=== PATIENT | female | born 1955 | race Caucasian/White ===

== ENCOUNTER → 2022-02-21 08:30 | Outpatient (BNVA) | payer MEDICARE, MEDICAID, SELFPAY | PROVIDERS: PCP Internal Medicine Geriatric Medicine; Referring Provider Internal Medicine Geriatric Medicine; Visit Provider Internal Medicine | DX: R07.89 Other chest pain (principal); R06.02 Shortness of breath; R00.2 Palpitations | CPT/HCPCS: 93005; 99202 ==

== ENCOUNTER → 2022-03-09 07:24 | Outpatient (REF) | payer MEDICARE, MEDICAID, SELFPAY ==
--- NOTE | 2022-03-09 07:34 | CA_ITS ---
Transthoracic Echocardiogram Patient (Last, First, Middle): Kristi Galan, Gender: Female Date of : 1955 Age: 66 Procedure Date: 03/09/2022 Procedure Type: Transthoracic Echocardiogram Location: OP Height: 157.48 cm Weight: 57.61 kg BSA: 1.58 m2 Heart Rate: 72 bpm BP: 100 / 70 mmHg It Infrastructure Manager: TO Referring MD: Bart Jim MD Data Center Engineer: Bishnu Jenkins MD Symptoms: R07.89 - Other chest pain Study Quality: Fair ECG Rhythm: Sinus Conclusions: - 1. Normal LV systolic function with grade 1 diastolic dysfunction 2. Normal cardiac valvular Doppler 3. Normal RV systolic pressure 4. No gross pericardial effusion Findings Left Ventricle Normal left ventricular size, thickness, and systolic function. The visually estimated ejection fraction is between 60-65%. Spectral Doppler is indicative of an impaired relaxation filling pattern. E/E prime ratio is <8, consistent with normal filling pressures. Evidence suggests grade I (mild) diastolic dysfunction. Right Ventricle Normal right ventricular cavity size and systolic function. Atria The left atrium is normal in size. There is a mobile atrial septum noted. Interatrial shunt cannot be excluded. The right atrium is normal in size. Aortic Valve The aortic valve structure and function is likely normal. There is no aortic valve stenosis. There is no aortic valve regurgitation. Mitral Valve Normal mitral valve structure and function. There is trace mitral valve regurgitation. There is no mitral valve stenosis. Pulmonic Valve The pulmonic valve is likely normal. There is trace to mild pulmonic valve regurgitation. Tricuspid Valve Likely normal tricuspid valve structure and function. There is trace tricuspid valve regurgitation. The right ventricular systolic pressure is normal. The right ventricular systolic pressure is 9 mmHg. There is no evidence of pulmonary hypertension. Great Vessels All visible segments of the aorta are normal in size. The pulmonary artery was not well visualized. Venous The inferior vena cava is normal in size and collapses greater than 50% with inspiration. Pericardium/Pleural There is no evidence of pericardial effusion. Prior Study Comparison No prior study available for comparison. Measurements 2D Linear Measurements IVSd: 0.83 0.6-0.9/0.6-1.0 cm LVIDd: 3.90 3.9-5.3/4.2-5.9 cm LVIDd Index: 2.47 2.4-3.2/2.2-3.1 cm/m2 LVIDs: 2.31 2.0-3.6 cm LVPWd: 0.72 0.7-1.1 cm LA Diam: 2.30 2.7-3.8/3.0-4.0 cm LAIDs Index: 1.46 1.5-2.3 cm/m2 LV Mass: 107.03 67-162/88-224 g LV Mass Index: 67.74 43-95/49-115 g/m2 LVOT Diam: 1.80 3.0+(-)1.3 cm 2D Systolic Function EF 4C: 60.50 >55% EF 2C: 59.00 >55% EF BiP: 61.00 >55% Mitral Valve MV Pk E: 0.55 MV PK A: 0.66 MV Decel Time: 181.00 E/A: 0.80 E'Lateral: 6.96 E'Medial: 6.20 E/E' Med: 8.90 E/E' Lat: 7.90 PHT: 53.00 MVA PHT: 4.15 Decel [place]: 3.05 Aortic Valve AoV Pk Chidi: 1.02 AoV Mn Chidi: 0.69 AoV VTI: 0.20 AoV Pk Grad: 4.00 Aov Mn Grad: 2.00 LONA Cont.VTI: 2.12 LVOT LVOT Pk Chidi: 0.84 LVOT Mn Chidi: 0.55 LVOT VTI: 0.17 LVOT Pk Grad: 3.00 LVOT Mn Grad: 1.00 LVOT Diam: 1.80 LVOT Area: 2.54 Diastolic Function MV Pk E: 0.55 MV Pk A: 0.66 E/A: 0.80 E'Medial: 6.20 E/E' Med: 8.90 E' Laterial: 6.96 E/E' Lat: 7.90 Right Ventricle TAPSE (mm): 23.00 TVS' Chidi: 9.36 Tricuspid Valve TR Pk Chidi: 1.24 TR Pk Grad: 6.00 RA Press: 3.00 RVSP: 9.00 Great Vessels Aorta Sinus of Valsalva: 2.96 2.0-3.[address] [place]: 2.35 1.7-3.4 cm Ao Asc: 3.00 2.1-3.4 cm Updated in Other Vendor System with Status of Final Bishnu Jenkins MD electronically signed on 03/11/2022 1:38:56 PM with status of Final
== END ==
LOC: HO.CARD 07:24
PROVIDERS: Visit Provider Internal Medicine
DX: R07.89 Other chest pain (principal); R06.02 Shortness of breath; R00.2 Palpitations
CPT/HCPCS: 93306

== ENCOUNTER → 2022-03-15 07:40 | Outpatient (REF) | payer MEDICARE, MEDICAID, SELFPAY ==
--- NOTE | ~2022-03-15 | NM_ITS ---
EXERCISE MYOCARDIAL PERFUSION STUDY INDICATION: Chest discomfort, assess for coronary disease and ischemia TECHNIQUE: The patient was brought in for an exercise perfusion study on 03/15/2022. Patient performed exercise as per Jeb protocol and was injected 25 mCi of sestamibi once target heart rate was achieved. Images were obtained using the SPECT gamma camera interlaced with the gating device. Images were obtained in supine position. Resting perfusion study was performed on 03/16/2022. Patient was administered 25 mCi of sestamibi intravenously at rest. Images were then obtained in supine position. Total DLP 67mGy-cm. Images were processed with the software and compared side to side in short axis, horizontal long axis and vertical long axis views. FINDINGS: Raw images were reviewed. The stress perfusion study showed mildly diminished tracer uptake towards the distal part of lateral wall. There is improvement with CT attenuation correction suggestive of soft tissue attenuation artifact. The gated study shows normal LV systolic function with calculated LVEF of 48%, but visually appears normal. LV cavity is normal in size. The gated study shows normal wall thickening and contraction of segments. Resting study shows no significant perfusion abnormality. Gating at rest reveals normal wall motion with ejection fraction at 57%. The findings are consistent with no reversible or fixed perfusion defects. NM/NM cardiolite stress test IMPRESSION: 1. Myocardial perfusion imaging study shows likely normal myocardial perfusion. No clear evidence of any ischemia or infarction. 2. Gated LVEF is 48% during stress but visually appears normal. 57% during rest. Correlate with echocardiogram. 3. Transient ischemic dilatation not present. EKG component of the test reported separately.
--- NOTE | 2022-03-15 07:43 | CA_ITS ---
Acquisition Time: 2022-03-15 07:55:11 Total Exercise Time: 00:07:00 Test Indications: Screening for CAD Medications: NONE Protocol: ADRI Max HR: 146 BPM 95% of Pred: 153 BPM Max BP: 138/076 mmHG Max Work Load: 8.5 METS Exercise stress test with exercise 7 min of Adri protocol, achieving 95% MPHR, with mild sob, no chest discomfort, without arrythmia, with normotensive response to exercise, without EKG changes meeting criteria for ischemia. Nuclear images pending. Test reviewed with Dr Mack. Referred By: Bart Jim Overread By: GONSALO CALDERON
== END ==
LOC: HO.CARD 07:40
PROVIDERS: Visit Provider Internal Medicine
DX: R07.89 Other chest pain (principal); R06.02 Shortness of breath
CPT/HCPCS: 78452; 93017; A9500

== ENCOUNTER 2022-04-06 15:44 | Outpatient (REF) | payer MEDICARE, MEDICAID, SELFPAY ==
--- NOTE | ~2022-04-06 | MR_ITS ---
EXAMINATION: MR BRAIN WITHOUT AND WITH CONTRAST CLINICAL INFORMATION: Right-sided trigeminal neuralgia. COMPARISON: None TECHNIQUE: Multiplanar, multisequence MRI of the brain/extracranial head-neck was obtained before and after the intravenous administration of 5.5 mL Gadavist. FINDINGS: Brain Volume: Within normal limits within the limitations of qualitative assessment. Structural: No malformations. Brain and Meninges: DWI sequence demonstrates no restricted diffusion to suggest acute or subacute cerebral ischemia. The brain is normal in morphology. A few punctate nonenhancing white matter T2 hyperintensities are seen in the cerebral hemispheres bilaterally which are nonspecific findings. There is subtle, 1 cm patchy T2 hyperintensity noted in the dorsal aspect of the pontomesencephalic junction with no abnormal enhancement, which is a nonspecific finding of indeterminate significance. The remainder of the brain is normal in signal intensity. No intracranial mass lesions or pathologic intracranial enhancement, space-occupying process or mass effect. Trigeminal Nerves and Pathways: The cisternal and cavernous portions of the trigeminal nerves are well visualized bilaterally and appear normal in morphology with no abnormal enhancement or focal mass lesion. Meckel's caves appear within normal limits and there is a normal appearance to the foramen ovale bilaterally and trigeminal fat pads. The cavernous sinuses are symmetric and enhance normally with a normal appearance to the superior orbital fissures and orbital apices. Normal appearance to the infraorbital grooves and inferior alveolar grooves bilaterally. The mandible appears intact. The cna hospice spaces are symmetric and within normal limits. Ventricles and Subarachnoid Spaces: The ventricular system and subarachnoid spaces are within normal limits without hydrocephalus. Orbital Structures: The visualized orbital structures are grossly unremarkable within the limitations of the study. No suprasellar or juxtasellar masses are identified. Vascular: Signal voids are noted in the visualized major intracranial vessels. Osseous Structures, Sinuses/Mastoids, Extracranial Soft Tissues: There is mild mucosal thickening in the visualized ethmoid complex. There is discogenic degenerative change and spondylosis at C4-C5, C5-C6 and C6-C7. There is trace anterolisthesis at C2-C3. MR/MR head/brain wo/w con IMPRESSION: 1. No evidence for trigeminal nerve lesion or abnormal enhancement. 2. A nonspecific patchy 1 cm T2 hyperintensity in the dorsal aspect of the pontomesencephalic junction with no abnormal enhancement is present which is of uncertain etiology and clinical significance. Recommend follow-up MRI of the brain in 6 months to reassess for stability. 3. Scattered punctate T2 hyperintensities in the white matter of both cerebral hemispheres which are nonspecific findings but could reflect minimal chronic ischemic microangiopathy or migraine associated vasculopathy.
== END 2022-04-06 15:45 | disposition home or self-care (01) ==
LOC: HO.MRI 15:44
PROVIDERS: Visit Provider Internal Medicine Geriatric Medicine
DX: G50.0 Trigeminal neuralgia (principal)
CPT/HCPCS: 70553; A9585

== ENCOUNTER → 2022-04-10 14:18 | Outpatient (BNVA) | payer MEDICARE, MEDICAID, SELFPAY | PROVIDERS: PCP Internal Medicine Geriatric Medicine; Referring Provider Internal Medicine Geriatric Medicine; Visit Provider Nurse Practitioner Family | DX: R07.89 Other chest pain (principal); R06.02 Shortness of breath; R00.2 Palpitations | CPT/HCPCS: 99212 ==

== ENCOUNTER 2022-11-09 11:47 | Outpatient (REF) | payer MEDICARE, OTHER, SELFPAY ==
--- NOTE | ~2022-11-09 | MM_ITS ---
EXAMINATION: MM SCREENING DIGITAL BREAST TOMOSYNTHESIS, BILATERAL CLINICAL INFORMATION: Screening. Asymptomatic. The lifetime risk of breast cancer based on the Tyrer-Cuzick Model is 5%. COMPARISON: Mammography: 09/17/2018, 09/11/2017, 09/02/2013 TECHNIQUE: Digital breast tomosynthesis is performed in both the craniocaudal and mediolateral oblique views along with computer-aided detection (CAD). Synthesized 2D images are generated from the tomosynthesis. FINDINGS: There are scattered areas of fibroglandular density (ACR BI-RADS breast composition Category b). There are no significant masses, abnormal calcifications, or other abnormalities. Breast tissue composition borders on heterogeneously dense. Parenchymal pattern is similar to prior studies and there is no developing density or architectural abnormality. The axilla and skin contours are unremarkable. MM/MM tomosynthesis screening BI IMPRESSION: No mammographic evidence of malignancy. ASSESSMENT: BI-RADS 1: Negative RECOMMENDATION: Routine annual mammography screening. This patient's information was entered into a reminder system with a target due date for their next mammogram.
== END 2022-11-09 11:48 | disposition home or self-care (01) ==
LOC: HO.MAMMO 11:47
PROVIDERS: PCP Internal Medicine Geriatric Medicine; Visit Provider Internal Medicine Geriatric Medicine
DX: Z12.31 Encounter for screening mammogram for malignant neoplasm of breast (principal)
CPT/HCPCS: 77063; 77067

== ENCOUNTER 2022-11-22 10:00 | Outpatient (RCR) | payer MEDICARE, OTHER, SELFPAY | END 2022-11-26 14:34 | disposition home or self-care (01) | LOC: HO.PT 10:00 | PROVIDERS: PCP Internal Medicine Geriatric Medicine; Visit Provider Internal Medicine Geriatric Medicine | DX: M54.50 Low back pain, unspecified (principal) | CPT/HCPCS: 97110; 97140; 97161 ==

== ENCOUNTER → 2023-01-03 09:49 | Outpatient (BNVA) | payer MEDICARE, OTHER, SELFPAY | PROVIDERS: PCP Internal Medicine Geriatric Medicine; Visit Provider Physician Assistant | DX: R19.5 Other fecal abnormalities (principal) | CPT/HCPCS: 99202 ==

== ENCOUNTER 2023-02-07 11:48 | Outpatient (REF) | payer MEDICARE, MEDICAID, SELFPAY ==
--- NOTE | ~2023-02-07 | MR_ITS ---
EXAMINATION: MR BRAIN WITHOUT AND WITH CONTRAST CLINICAL INFORMATION: Follow-up abnormal MRI COMPARISON: MRI brain with and without contrast 04/06/2022 TECHNIQUE: Multiplanar multisequence MR imaging of the brain was obtained without and following the administration of 5.5 mL Gadavist intravenous contrast. FINDINGS: There is no acute infarct on diffusion-weighted imaging. There is no intracranial hemorrhage on iron-sensitive imaging. No extra-axial collection or mass effect/herniation. There are several scattered foci of nonspecific supratentorial white matter T2/FLAIR signal abnormality. Stable subtle T2/FLAIR signal abnormality involving the dorsal louisa at the pontomesencephalic junction. No hydrocephalus. The ventricles are normal in morphology and size. No abnormal parenchymal or extra-axial enhancement. The major flow voids at the skull base are preserved. The midline structures are normal. The cerebellar tonsils are normally positioned. The craniocervical junction is normal. Marrow signal is within normal limits. The visualized soft tissues are without significant abnormality. No signal abnormality within the paranasal sinuses or within the mastoid air cells. MR/MR head/brain wo/w con IMPRESSION: 1. Stable subtle nonenhancing T2/FLAIR signal abnormality involving the dorsal louisa at the pontomesencephalic junction of uncertain clinical significance. 2. No new or acute intracranial abnormality.
== END 2023-02-07 11:49 | disposition home or self-care (01) ==
LOC: HO.MRI 11:48
PROVIDERS: PCP Internal Medicine Geriatric Medicine; Visit Provider Internal Medicine Geriatric Medicine
DX: G50.0 Trigeminal neuralgia (principal); R90.89 Other abnormal findings on diagnostic imaging of central nervous system
CPT/HCPCS: 70553; A9585

== ENCOUNTER 2023-10-10 11:26 | Day surgery (SDC) | payer MEDICARE, MEDICAID, SELFPAY ==
--- NOTE | 2023-10-09 10:22 | P.CONAN_ITS ---
Documented by User: Kae Hodgson NP 10/09/23 10:23 [facility] Active Problems Active Problems: All Active Problems (Updated 01/09/23 @ 09:24 by Yessy Hoyos PA-C) Positive colorectal cancer screening using Cologuard test (Acute) Palpitations (Acute) Shortness of breath (Acute) Chest discomfort (Acute) Family History Family History Mother No problems noted. Father No problems noted. Surgical History Surgical History History of foot surgery History of hysterectomy Social History Social History Household Members Other:: - 1 daughter- Alcohol intake: never Patient Tobacco Use Status: Never used Tobacco Use of substances other than those prescribed or required for medical reasons: No Are you DNR?: No Advance Directives: No Advance Directives Information Provided: Yes Meds Allergies Allergy/AdvReac Type Severity Reaction Status Date / Time No Known Allergies Allergy Verified 04/10/22 14:43 Home Medications ?Medication ?Instructions ?Recorded ?Confirmed ?Last Taken ?Type azelastine 137 mcg (0.1 %) nasal 2 spray intranasal BID 04/10/22 01/03/23 Unknown History spray aerosol carbamazepine 100 mg 100 mg PO Q12H 04/10/22 01/03/23 Unknown History tablet,extended release,12 hr fluticasone propionate 50 1 - 2 spray intranasal DAILY PRN 04/10/22 01/03/23 Unknown History mcg/actuation nasal spray,suspension gabapentin 100 mg capsule 100 mg PO TID 04/10/22 01/03/23 Unknown History nabumetone 750 mg tablet 750 mg PO BID 04/10/22 01/03/23 Unknown History Exam Narrative Narrative: NM cardiolite stress test 2021 IMPRESSION: 1. Myocardial perfusion imaging study shows likely normal myocardial perfusion. No clear evidence of any ischemia or infarction. 2. Gated LVEF is 48% during stress but visually appears normal. 57% during rest. Correlate with echocardiogram. 3. Transient ischemic dilatation not present. EKG component of the test reported separately. ECHO 2021 Conclusions: - 1. Normal LV systolic function with grade 1 diastolic dysfunction 2. Normal cardiac valvular Doppler 3. Normal RV systolic pressure 4. No gross pericardial effusion Assessment and Plan Assessment Anesthesia Assessment: Chart Reviewed Documented by User: Sneha Serrano MD 10/10/23 12:14 HPI - Anesthesia Eval Consult details Narrative: 68 yo female patient with positive Cologuard test. For Colonoscopy. [facility] Active Problems Active Problems: All Active Problems (Updated 01/09/23 @ 09:24 by Yessy Hoyos PA-C) Positive colorectal cancer screening using Cologuard test (Acute) Palpitations (Acute) Shortness of breath (Acute) Chest discomfort - only occasionally. Cardiac w/u 2021- negative Generalized body pain Family History Family History Mother No problems noted. Father No problems noted. Family history of problems with anesthesia: No Surgical History Surgical History History of foot surgery History of hysterectomy History of Problems with Anesthesia: Yes (Slow awakening with hysterectomy ) Social History Social History Household Members Other:: - 1 daughter- Alcohol intake: never Patient Tobacco Use Status: Never used Tobacco Use of substances other than those prescribed or required for medical reasons: No Are you DNR?: No Advance Directives: No Advance Directives Information Provided: Yes Meds Allergies Allergy/AdvReac Type Severity Reaction Status Date / Time No Known Allergies Allergy Verified 04/10/22 14:43 Home Medications ?Medication ?Instructions ?Recorded ?Confirmed ?Last Taken ?Type azelastine 137 mcg (0.1 %) nasal 2 spray intranasal BID 04/10/22 01/03/23 Unknown History spray aerosol carbamazepine 100 mg 100 mg PO Q12H 04/10/22 01/03/23 Unknown History tablet,extended release,12 hr fluticasone propionate 50 1 - 2 spray intranasal DAILY PRN 04/10/22 01/03/23 Unknown History mcg/actuation nasal spray,suspension gabapentin 100 mg capsule 100 mg PO TID 04/10/22 01/03/23 Unknown History nabumetone 750 mg tablet 750 mg PO BID 04/10/22 01/03/23 Unknown History Exam Height,Weight and Vital Signs: Height 5 ft 2 in Weight 61.859 kg Vital Signs Temp Pulse Resp BP Pulse Ox O2 Del Method 10/10/23 11:42 98.6 F 100 16 125/81 96 Room Air Airway Mallampati Class: II TM Dist: >3cm Neck ROM: Full Loose/Missing/Broken Teeth: No (Denies broken, loose, missing teeth) Heart: RRR Lungs: CTAB Assessment and Plan Assessment Anesthesia Assessment: Anesthesia Plan Discussed and Chart Reviewed Final Anesthetic Review Family History of Problems with Anesthesia: No History of Problems with Anesthesia: Yes (Slow awakening with hysterectomy ) NPO: Yes ASA Class: II Final Preanesthetic Review: No Changes in Pt Med Stat, Meds/Allgs Chart Reviewed, Consent Obtained/Reviewed and Anes Risks/Benef Reviewed Patient Risk: Low Procedure Risk: Low Assessment/Block/Sedation in SS: Assess/Block/Sedation-SS Anesthetic Plan Anesthetic Plan: MAC: and TIVA Disposition: Standard PACU
[2023-10-10 11:33] VITALS: BMI 24.9
--- NOTE | 2023-10-10 11:36 | MHC.SHP ---
Pre-Procedural Eval Section A - 24 Hr Update-Section A only Date of Service: 10/10/23 Section B - Complete if H&P > 30 days Chief Complaint: pos cologuard Relevant Family History (Specify if Yes): No Relevant Social History: None Present Medications: see Short Stay Collaborative assessment Medical History: Significant History (back pain) History of Previous Operations: Relevant previous surgery/procedure and date(s) (History of hysterectomy) Allergies: Allergies Allergy/AdvReac Type Severity Reaction Status Date / Time No Known Allergies Allergy Verified 04/10/22 14:43 Review of Systems Sugical H&P ROS: Negative: Constitution, Cardiovascular, Respiratory, Neurological, Psychiatric, Hem-Onc, Allergic/Immunologic, Gastrointestinal, Genitourinary, Musculoskeletal, Integumentary, Endocrine and Eyes/Ears/Nose/Throat Exam Surgical H&P Exam: Normal: HEENT, Normal: Heart, Normal: Lungs, Normal: Extremities, Normal: Abdomen, Normal: Skin and Normal: Neurological Plan Diagnosis/Plan: Unchanged I have reviewed the history and physical and performed a pertinent physical examination on my patient. No changes have occurred unless specified. Time Spent With Patient Time: Total time managing care of this patient today ____ minutes.
[2023-10-10 11:42] VITALS: BP 125/81; PULSE 100; RESP 16; TEMP 37; O2SAT 96
[2023-10-10] MEDS: Lactated Ringers 1,000 ML 100 ML IVCONT (11:50)
--- NOTE | 2023-10-10 12:43 | W.PM.OPN ---
Operative Note Operative Note Date of Service: 10/10/23 Narrative: Operative Information Procedure Description: Colonoscopy Indication: pos cologuard Anesthesia: MAC COLONOSCOPY Instrument: Olympus variable stiffness pediatric scope 190L Colonoscopy Monitoring: Vital signs and clinical assessment, continuous EKG monitoring, Pulse oximetry, Carbon Dioxide monitoring and blood pressure monitoring were done throughout the procedure. Colon withdrawal time was 20 minutes. Procedure: The patient was placed in the left lateral decubitis position and pre-procedure medications were administered. After a digital rectal examination of the ano-rectum, the video colonoscope was inserted into the rectum and advanced through the colon to the cecum/TI. The colonoscope was slowly withdrawn in a retrograde panoramic fashion and the colon mucosa was carefully examined including a retroflexed view of the rectum. Findings and interventions are described below. Procedure Difficulty: easy Findings: Terminal Ileum-normal Cecum:normal Ascending Colon: 10 mm sessile polyp lifted with eleview and removed with cold snare Transverse Colon -normal Descending Colon:normal Sigmoid Colon: moderate diverticulosis, 4-6 mm sessile polyp removed with cold snare Rectum: Retroflexion with small internal hemorrhoids seen, grade I Anorectum - normal Intervention: cold snare and eleview injection- EMR Colon preparation: [place] Bowel Preparation Scale Right colon; 2 Transverse colon: 2 Left colon; 2 (0 = Unprepared colon segment with mucosa not seen due to solid stool that cannot be cleared. 1 = Portion of mucosa of the colon segment seen, but other areas of the colon segment not well seen due to staining, residual stool and/or opaque liquid. 2 = Minor amount of residual staining, small fragments of stool and/or opaque liquid, but mucosa of colon segment seen well. 3 = Entire mucosa of colon segment seen well with no residual staining, small fragments of stool or opaque liquid) Impression and Post Procedure Diagnosis: diverticulosis colon polyps internal hemorrhoids Plan: High fiber diet leaflet Avoid straining at stool, epsom salts and sitz bath, anusol supps or cream Repeat Colonoscopy in 5 years due to polyps or earlier if clinically indicated Above findings were reviewed with the patient and relevant handouts were provided if indicated.
[2023-10-10 12:45] VITALS: BP 102/62; PULSE 90; RESP 16; TEMP 36.6; O2SAT 94
[2023-10-10 13:00] VITALS: BP 115/92; PULSE 88; RESP 18; TEMP 36.6; O2SAT 96
== END 2023-10-10 13:35 | disposition home or self-care (01) ==
PROVIDERS: PCP Internal Medicine Geriatric Medicine; Visit Provider Internal Medicine Gastroenterology
PROC: 0DJD8ZZ Inspection of Lower Intestinal Tract, Via Natural or Artificial Opening Endoscopic (ICD-10-PCS; CPT 45378; principal; 2023-10-10 13:50)
DX: R19.5 Other fecal abnormalities (principal); D12.5 Benign neoplasm of sigmoid colon; K63.5 Polyp of colon; K57.30 Diverticulosis of large intestine without perforation or abscess without bleeding; K64.0 First degree hemorrhoids
CPT/HCPCS: 45385; 45381; 88305; J2704

== ENCOUNTER → 2023-10-10 11:26 | Outpatient (BNV) | payer MEDICARE, MEDICAID, SELFPAY | PROVIDERS: PCP Internal Medicine Geriatric Medicine; Visit Provider Internal Medicine Gastroenterology | DX: Z12.11 Encounter for screening for malignant neoplasm of colon (principal); R19.5 Other fecal abnormalities; K63.5 Polyp of colon; K57.30 Diverticulosis of large intestine without perforation or abscess without bleeding | CPT/HCPCS: 45381; 45385 ==

== ENCOUNTER 2024-02-12 08:40 | Outpatient (REF) | payer MEDICARE, MEDICAID, SELFPAY | END 2024-02-12 08:41 | disposition home or self-care (01) | LOC: HO.MAMMO 08:40 | PROVIDERS: PCP Internal Medicine Geriatric Medicine; Visit Provider Internal Medicine Geriatric Medicine | DX: Z12.31 Encounter for screening mammogram for malignant neoplasm of breast (principal) | CPT/HCPCS: 77063; 77067 ==

== ENCOUNTER → 2024-02-12 08:45 | Outpatient (BNV) | payer MEDICARE, MEDICAID, SELFPAY | PROVIDERS: PCP Internal Medicine Geriatric Medicine; Visit Provider Radiology Diagnostic Radiology | DX: Z12.31 Encounter for screening mammogram for malignant neoplasm of breast (principal) | CPT/HCPCS: 77063; 77067 ==

== ENCOUNTER 2025-02-17 08:49 | Outpatient (REF) | payer MEDICARE, MEDICAID, SELFPAY ==
--- NOTE | ~2025-02-17 | MM_ITS ---
EXAMINATION: MM SCREENING DIGITAL BREAST TOMOSYNTHESIS, BILATERAL CLINICAL INFORMATION: Screening. Asymptomatic. COMPARISON: Comparison made to multiple prior, most recent February 12, 2024, and most remote September 11, 2017. TECHNIQUE: Digital breast tomosynthesis is performed in both the craniocaudal and mediolateral oblique views along with computer-aided detection (CAD). FINDINGS: BREAST COMPOSITION: The breasts are heterogeneously dense, which may obscure small masses (ACR BI-RADS breast composition Category c). BILATERAL BREASTS: No significant masses, suspicious calcifications or other abnormalities are seen in either breast. MM/MM tomosynthesis screening BI IMPRESSION: BILATERAL BREASTS: Negative, no mammographic evidence of malignancy. Normal interval follow-up is recommended in 12 months. ASSESSMENT: BI-RADS 1 - Negative RECOMMENDATION: Routine annual mammography screening. FOLLOW-UP: 1 year F/U This examination should not preclude the clinical evaluation of a suspicious palpable abnormality. This patient's information was entered into a reminder system with a target due date for their next mammogram. Electronically signed by: Nusrat Zamora MD 02/22/2025 08:00 PM EDT
--- OUTSIDE RECORDS SUMMARY | 2025-02-17 09:09 | XMS_ITS | Clinical Summary ---
Author Organization [employer] Address [address] [facility] [address] [place] [address] Care Team Providers Care Bankruptcy Processor Name Role Phone Name, Ayaan ALVARADO Primary Care Provider [phone] Allergies No known active allergies Medications omeprazole OTC (PriLOSEC OTC) 20 MG EC tablet Take 1 tablet (20 mg) by mouth before breakfast. Do not crush, chew, or split. 30 tablet 11 3 Active gabapentin (Neurontin) 100 MG capsule Take 1 capsule (100 mg) by mouth 3 times daily. 90 capsule 4 Active celecoxib (CeleBREX) 200 MG capsuleIndicati ons:Chronic left-sided low back pain with left-sided sciatica TAKE 1 CAPSULE (200 MG) BY MOUTH IF NEEDED EACH DAY FOR MILD PAIN OR MODERATE PAIN (BACK PAIN). 30 capsule 2 4 Active fluticasone (Flonase) 50 MCG/ACT nasal sprayIndication s:Seasonal allergies Administer 1-2 sprays into each nostril Once per day. Shake gently. Before first use, prime pump. After use, clean tip and replace cap. 16 g 11 4 Active Azelastine HCl 137 MCG/SPRAY solutionIndicat ions:Seasonal allergies USE 2 SPRAYS IN EACH NOSTRIL TWICE DAILY DIRECTED 90 mL 5 Active Active Problems Problem Noted Date Diagnosed Date Positive colorectal cancer screening using Colog uard test 10/29/2023 Overview (02/07/2024): favorable colonoscopy 2023. She is recommended to repeat in 5 years Abnormal brain MRI 12/28/2022 Overview (12/28/2022): MRI done 04/11/22 for work up of trigeminal neuralgia: IMPRESSION: 1. No evidence for trigeminal nerve lesion or abnormal enhancement. 2. A nonspecific patchy 1 cm T2 hyperintensity in the dorsal aspect of the pontomesencephalic junction with no abnormal enhancement is present which is of uncertain etiology and clinical significance. Recommend follow-up MRI of the brain in 6 months to reassess for stability. 3. Scattered punctate T2 hyperintensities in the white matter of both cerebral hemispheres which are nonspecific findings but could reflect minimal chronic ischemic microangiopathy or migraine associated vasculopathy. Seasonal allergies 10/01/2022 Trigeminal neuralgia 10/01/2022 Osteoarthritis of multiple joints 09/02/2018 H. pylori infection 04/16/2018 H/O: hysterectomy 03/12/2018 Grief 03/12/2018 Epigastric pain 03/12/2018 Depressive disorder 03/12/2018 Resolved Problems Problem Noted Date Diagnosed Date Resolved Date Chest discomfort 10/29/2023 02/07/2024 Palpitations 10/29/2023 02/07/2024 Shortness of breath 10/29/2023 02/07/20 24 Joint pain 03/12/2018 02/07/2024 Encounters Date Type Department Care Team Description 01/02/2025 Refill [facility] [address] [place] [address] Name, MD Ayaan Seasonal allergies from Last 3 Months Immunizations Immunization Administration Dates Next Due Influenza High-dose Quadrivalent Preservative Fr ee 03/27/2023,04/16/2022 Influenza Quadrivalent Adjuvanted 03/28/2020 Influenza injectable quadrivalent preservative f ree 05/16/2018 Pfizer Covid-19 Vaccine 12+ brayan-sucrose ([place] C ap) 05/17/2021 Tdap 03/12/2018 Social History Tobacco Use Types Packs/Day Years Used Date Smoking Tobacco: Never Smokeless Tobacco: Never Tobacco Cessation:Counseling Given: Not Answered Alcohol Use Standard Drinks/Week Comments Never 0 (1 standard drink = 0.6 oz pur e alcohol) Depression Answer Date Recorded Patient Health Questionnaire-9 Score 0 10/29/2023 Patient Health Questionnaire-9 Score 0 10/29/2023 Last PHQ-9: Questionnaire Data Not on file 0 10/29/2023 Housing Stability Answer Date Recorded What is your housing situation today? I have santhosh lu 10/29/[address] you li ve. Do you have problems with any of the following? None of the above 10/29/2023 Food Insecurity Answer Date Recorded Within the past 12 months, y ou worried that your food would run out before you got money to buy more: Never True 10/29/2023 Within the past 12 months,th e food you bought just didn't last and you didn't have enough money to get more: Never True Transportation Answer Date Recorded In the past 12 months, has l ack of transportation kept you from medical appts, meetings, work or from getting things needed for daily living? No 10/29/2023 Utilities Answer Date Recorded In the past 12 months, has t he electric, gas, oil or water company threatened to shut off services in your home? No 10/29/2023 Depression Answer Date Recorded Patient Health Questionnaire-2 Score 0 10/29/2023 Comments Unknown Sex and Gender Information Value Date Recorded Sex Assigned at Female 05/07/2022 10:34 AM EDT Legal Sex Female 10:34 AM EDT Gender Identity Female 05/07/2022 10:34 AM EDT Sexual Orientation Straight 05/07/2022 10 :34 AM EDT Last Filed Vital Signs Vital Sign Reading Time Taken Comments Blood Pressure 131/73 05/08/2024 9:12 AM EDT Pulse 80 05/08/2024 9:12 AM EDT Temperature 36.9 C (98.4 F) 05/08/2024 9:12 AM EDT Respiratory Rate 18 05/08/2024 9:12 AM EDT Oxygen Saturation 94% 05/08/2024 9:12 AM EDT Inhaled Oxygen Concentration - - Weight 59.6 kg (131 lb 6.4 oz) 05/08/2024 9:12 A M EDT Height 157.5 cm (5' 2 ) 05/08/2024 9:12 AM EDT Body Mass Index 24.03 05/08/2024 9:12 AM EDT Plan of Treatment Upcoming Encounters Date Type Department Care Team (Late st Contact Info) Description 02/25/2025 3:30 PM EDT Office Visit [facility] [address] [place] [address], [place] [id number] Sandy Montano, OD [address] [place] [address] Health Maintenance Due Date Last Done Comments CT Colonography 1955 FIT 1955 FOBT 1955 Sigmoidoscopy 1955 Alcohol/Substance Use Screening 1966 Hepatitis C Screening 1972 Pneumococcal Vaccine: 50+ Years (1 of 1 - PCV) 2004 Zoster Vaccines (1 of 2) 2004 COVID-19 Vaccine (3 - season) 2024 05/17/2021, 09/28/2020 Depression Screening 10/28/2024 10/29/2023, 10/29/19 SDOH Screening 10/28/2024 10/29/2023 Influenza Vaccine (#1) 2025 , 04/16/2022, 03/28/2020, Additional history exists Tobacco Screening 11/05/2025 11/05/2024 Mammogram 02/11/2026 02/12/2024, 05/0 11/2022, 11/09/2022, Additional history exists Colorectal Cancer Screening 10/26/2027 FIT DNA/Cologuard 10/26/2027 10/25/2022, 10/25/2022 DTaP/Tdap/Td Vaccines (2 - Td or Tdap) 03/12/2028 03/12/2018 RSV Patients and Patients Aged 60 years or older (1 - 1-dose 75+ series) 2029 Colonoscopy 10/09/2033 10/10/2023, 04/0 10/2023, 10/10/2023 HIB Vaccines Aged Out No longer eligi ble based on patient's age to complete this topic HPV Vaccines Aged Out No longer eligi ble based on patient's age to complete this topic Hepatitis A Vaccines Aged Out No long er eligible based on patient's age to complete this topic Hepatitis B Vaccines Aged Out No long er eligible based on patient's age to complete this topic IPV Vaccines Aged Out No longer eligi ble based on patient's age to complete this topic Meningococcal B Vaccine Aged Out No l onger eligible based on patient's age to complete this topic Meningococcal Vaccine Aged Out No nam amparo eligible based on patient's age to complete this topic RSV under 20 months Aged Out No longe r eligible based on patient's age to complete this topic Rotavirus Vaccines Aged Out No longer eligible based on patient's age to complete this topic Procedures Procedure Name Priority Date/Time Associated Diagnosis Comments BI MAMMOGRAM SCREENING TOMOSYNTHESIS BILATERAL Routine 02/12/2024 9:15 AM EDT Encounter for screening mammogram for malignant neoplasm of breast HM COLONOSCOPY Routine 10/10/2023 COLOGUARD COLON CANCER SCREENING (EXTERNAL RESULTS ONLY) Routine 10/25/2022 2:05 PM EDT from Last 3 Months or Most Recently Relevant to Health Maintenance Results * BI Mammogram Screening Tomosynthesis Bilateral (02/12/2024 9:15 AM EDT) Anatomical Region Laterality Modality Breast Bilateral Mammography 02/12/2024 9:15 AM EDT Narrative 02/12/2024 11:09 AM EDT [place] [facility] [address] [place] [address] Mammography Report Signed Patient: Kristi Galan MR#: [id number] : 1955 Acct:[id number] Age/Sex: 68 / F ADM Date: 02/12/24 Loc: HO.MAMMO Attending Dr: Ayaan Saha MD Ordering Physician: Ayaan Saha MD Results: 1Negative Date of Service: 02/12/24 Follow Up: 1 Year From [facility] ina Mammogram Procedure(s): MM tomosynthesis screening BI Accession Number(s): [id number] cc: Ayaan Saha MD EXAMINATION: MM SCREENING DIGITAL BREAST TOMOSYNTHESIS, BILATERAL CLINICAL INFORMATION: Screening. Asymptomatic. COMPARISON: Mammography: This study is compared with prior exams dating back to 2018. TECHNIQUE: Digital breast tomosynthesis is performed in both the craniocaudal and mediolateral oblique views along with computer-aided detection (CAD). Synthesized 2D images are generated from the tomosynthesis. FINDINGS: There are scattered areas of fibroglandular density (ACR BI-RADS breast composition Category b). There are no significant masses, abnormal calcifications, or other abnormalities. MM/MM tomosynthesis screening BI IMPRESSION: No mammographic evidence of malignancy. ASSESSMENT: BI-RADS BI-RADS 1 - Negative RECOMMENDATION: Routine annual mammography screening. 1 year F/U This examination should not preclude the clinical evaluation of a suspicious palpable abnormality. This patient's information was entered into a reminder system with a target due date for their next mammogram. Dictated By: Kristal Huizar MD Signed By: <Electronically signed by Kristal Huizar MD in OV> 02/12/24 1105 DD/ 09 TD/TT: Senior Technical Editor: Procedure Note Donotuseinterpreter, Image - 02/12/2024 [facility] [address] [place] [address] Mammography Report Signed Patient: Kristi GalanMR#: [id number] : 4Acct:[id number] Age/Sex: 68 / FADM Date: 02/12/24 Loc: [facility] Attending Dr: Ayaan Saha MD Ordering Physician: Ayaan Saha MDResults: 1Negative Date of Service: 02/12/24Follow Up: 1 Year From Orig inal Mammogram Procedure(s): MM tomosynthesis screening BI Accession Number(s): [id number] cc: Ayaan Saha MD EXAMINATION: MM SCREENING DIGITAL BREAST TOMOSYNTHESIS, BILATERAL CLINICAL INFORMATION: Screening. Asymptomatic. COMPARISON: Mammography: This study is compared with prior exams dating back to 2018. TECHNIQUE: Digital breast tomosynthesis is performed in both the craniocaudal and mediolateral oblique views along with computer-aided detection (CAD). Synthesized 2D images are generated from the tomosynthesis. FINDINGS: There are scattered areas of fibroglandular density (ACR BI-RADS breast composition Category b). There are no significant masses, abnormal calcifications, or other abnormalities. MM/MM tomosynthesis screening BI IMPRESSION: No mammographic evidence of malignancy. ASSESSMENT: BI-RADS BI-RADS 1 - Negative RECOMMENDATION: Routine annual mammography screening. 1 year F/U This examination should not preclude the clinical evaluation of a suspicious palpable abnormality. This patient's information was entered into a reminder system with a target due date for their next mammogram. Dictated By: Kristal Huizar MD Signed By: <Electronically signed by Kristal Huizar MD in OV> 02/12/24 1105 DD/ 0915 TD/TT: Senior Technical Editor: us Ayaan Saha MD IMG BI PROCEDURES Final Result * (ABNORMAL) Hm Colonoscopy (10/10/2023) Colonoscopy Abnormal(A ) Normal us Ayaan Saha MD HEALTH MAINTENANCE Final Result * (ABNORMAL) Cologuard Colon Cancer Screening (10/25/2022 2:05 PM EDT) Cologuard Cancer Screen Positive Comment:Pt needs colonscopy Stool 10/25/2022 2:05 PM EDT us Ayaan Saha MD POINT OF CARE TEST ENTER/EDIT OR DERABLES Final Result from Last 3 Months or Most Recently Relevant to Health Maintenance Insurance [employer] Care Teams Bankruptcy Processor Relationship Specialty Start Date End Date Name, MD Ayaan [address] [place] [address] PCP - General Family Medicine 01/24/18
== END 2025-02-17 08:50 | disposition home or self-care (01) ==
LOC: HO.MAMMO 08:49
PROVIDERS: PCP Internal Medicine Geriatric Medicine; Visit Provider Internal Medicine Geriatric Medicine
DX: Z12.31 Encounter for screening mammogram for malignant neoplasm of breast (principal)
CPT/HCPCS: 77063; 77067

== ENCOUNTER → 2025-02-17 09:15 | Outpatient (BNV) | payer MEDICARE, MEDICAID, SELFPAY | PROVIDERS: PCP Internal Medicine Geriatric Medicine; Visit Provider Radiology Body Imaging | DX: Z12.31 Encounter for screening mammogram for malignant neoplasm of breast (principal) | CPT/HCPCS: 77063; 77067 ==